=== PATIENT | female | born 1935 | race Caucasian/White ===

== ENCOUNTER 2019-11-11 11:53 | Day surgery (SDC) | payer MEDICARE ==
[2019-11-11] VITALS (28 sets, daily range): BP systolic 113–161; BP diastolic 51–92
[~2019-11-11] VITALS: Ht 154.9 cm; Wt 77.2 kg
[2019-11-11] MEDS ORDERED: fentaNYL/PF 50MCG/1 ML 2ML syringe IV ONE ×2 (12:35→14:40)
[2019-11-11] MEDS ORDERED: atropine 0.1mg/ml 10ml syringe IV ONE (12:35)
[2019-11-11] MEDS ORDERED: MIDAZolam 5mg/ml 2ml vial IV ONE ×2 (12:35→14:40)
[2019-11-11] MEDS ORDERED: CRANBERRY (12:38)
[2019-11-11] MEDS ORDERED: VISION (12:38)
[2019-11-11] MEDS ORDERED: LISI-600 PO (12:38)
[2019-11-11] MEDS ORDERED: FIBER (12:38)
[2019-11-11] MEDS ORDERED: LEVO100T PO (12:38)
[2019-11-11] MEDS ORDERED: DILT120C88 PO (12:38)
[2019-11-11] MEDS ORDERED: ATOR40TA PO (12:38)
[2019-11-11] MEDS ORDERED: NITR0.4T48 SL (12:38)
[2019-11-11] MEDS ORDERED: normal saline 1,000 ML IV SCH (13:00)
[2019-11-11 13:29] LABS: BASOPHILS # (AUTO) 0.1 X10'3 (0-0.2); BASOPHILS % (AUTO) 0.9 % (0-1); EOSINOPHILS # (AUTO) 0.2 X10'3 (0-0.9); EOSINOPHILS % (AUTO) 2.4 % (0-6); HEMATOCRIT 43.9 % (35.0-45.0); HEMOGLOBIN 14.6 g/dl (12.0-16.0); LYMPHOCYTES # (AUTO) 3.2 X10'3 (1.1-4.8); MEAN CORPUSCULAR HEMOGLOBIN 28.9 PG (27.0-31.0); MEAN CORPUSCULAR HGB CONC 33.4 g/dL (33.0-36.5); MEAN CORPUSCULAR VOLUME 86.4 FL (78-98); MEAN PLATELET VOLUME 7.8 FL (7.4-10.4); MONOCYTES % (AUTO) 11.3 % (2-12); NEUTROPHILS # (AUTO) 4.4 X10'3 (1.8-7.7); NEUTROPHILS % (AUTO) 49.4 % (42-75); PLATELET COUNT 293 X10'3 (140-440); RED BLOOD COUNT 5.08 X10'6 (4.20-5.60); RED CELL DISTRIBUTION WIDTH 14.1 % (11.5-14.5); WHITE BLOOD COUNT 8.8 X10'3 (4.5-11.0)
[2019-11-11 13:38] LABS: ALBUMIN 3.8 G/DL (3.4-5.0); ANION GAP 9 (8-16); BLOOD UREA NITROGEN 19 MG/DL (7-18); BUN/CREATININE RATIO 20.4 (6.6-38.0); CALCIUM 8.8 MG/DL (8.5-10.1); CHLORIDE 102 MMOL/L (99-107); CREATININE 0.93 MG/DL (0.40-0.90); GLUCOSE 92 MG/DL (70-104); MAGNESIUM 1.9 MG/DL (1.5-2.4); POTASSIUM 4.3 MMOL/L (3.5-5.1); SODIUM 138 MMOL/L (135-145); TOTAL CARBON DIOXIDE 26.7 MMOL/L (24-32); eGFR 57 ML/MIN
[2019-11-11] MEDS ORDERED: glycopyrrolate 0.2mg/ml inj IV ONE ×2 (14:10→14:30)
[2019-11-11] MEDS ORDERED: amiodarone 150mg/dext, iso-os 100 ML IV ONE ×2 (14:20→14:50)
[2019-11-11] MEDS ORDERED: metoprolol tartrate 1mg/ml inj IV PRN (15:10)
== END 2019-11-11 17:05 | disposition home or self-care (01) ==
LOC: SSTAY O 11:53
PROVIDERS: ATTEND Internal Medicine Cardiovascular Disease
DX: I48.91 Unspecified atrial fibrillation (principal); I08.1 Rheumatic disorders of both mitral and tricuspid valves; I10 Essential (primary) hypertension; E78.5 Hyperlipidemia, unspecified; Z86.73 Personal history of transient ischemic attack (TIA), and cerebral infarction without residual deficits; Z79.899 Other long term (current) drug therapy; Z98.890 Other specified postprocedural states
CPT/HCPCS: 36415; 76937; 80048; 83735; 85025; 85610; 92960; 93005; 93312; 93325; J0282; J0461; J2250; J3010; J7030; J3490

== ENCOUNTER 2019-12-23 10:32 | Day surgery (SDC) | payer MEDICARE ==
[~2019-12-23] VITALS: Ht 154.9 cm; Wt 76.5 kg
[~2019-12-23 10:32] MED LIST: ATOR40TA PO; CRANBERRY PO; DILT120C88 PO; FIBER; LEVO100T PO; LISI-600 PO; NITR0.4T48 SL; VISION
[2019-12-23] MEDS ORDERED: normal saline 1000ml 1,000 ML IV SCH (11:05)
[2019-12-23] MEDS ORDERED: atropine 0.1mg/ml 10ml syringe IV ONE (11:05)
[2019-12-23] MEDS ORDERED: fentaNYL/PF 50MCG/1 ML 2ML syringe IV ONE (11:05)
[2019-12-23] MEDS ORDERED: MIDAZolam 1mg/ml 10ml vial IV ONE (11:05)
[2019-12-23 11:37] VITALS: BP 197/90
[2019-12-23 11:45] VITALS: BP 197/90
[2019-12-23] MEDS ORDERED: ASPI81TA52 PO (12:10)
[2019-12-23] MEDS ORDERED: AMIO200T27 PO (12:10)
[2019-12-23] MEDS ORDERED: MULT-1133 PO (12:10)
== END 2019-12-23 12:00 | disposition home or self-care (01) ==
LOC: SSTAY O 10:32 → EDSTATUS 12:30
PROVIDERS: ATTEND Internal Medicine Cardiovascular Disease
DX: I48.19 Other persistent atrial fibrillation (principal); Z53.9 Procedure and treatment not carried out, unspecified reason
CPT/HCPCS: 93005